=== PATIENT | female | born 2000 | race Hispanic/Latino ===

== ENCOUNTER 2024-08-29 19:51 | Emergency (ER) | payer OTHER, SELFPAY | END 2024-08-29 20:18 | disposition home or self-care (01) | LOC: NAV ERS 19:51 | DX: L03.116 Cellulitis of left lower limb (principal) | CPT/HCPCS: 99283 ==

== ENCOUNTER 2024-10-06 11:13 | Emergency (ER) | payer SELFPAY | END 2024-10-06 12:56 | disposition home or self-care (01) | LOC: NAV ERS 11:13 | DX: J02.9 Acute pharyngitis, unspecified (principal) | CPT/HCPCS: 87070; 87077; 87205; 87430; 99283 ==